=== PATIENT | male | born 1950 | race Caucasian/White ===

== ENCOUNTER 2024-06-13 16:21 | Inpatient (IN) | payer MEDICARE, OTHER ==
[~2024-06-13] VITALS: Ht 172.7 cm; Wt 84.8 kg
[2024-06-13 17:25] VITALS: BP 133/70; PULSE 68; RESP 18; TEMP 98.6; O2SAT 98
[2024-06-13] MEDS ORDERED: BISACODYL 10 MG RECTAL RECTAL SUPPOSITORY PR PRN (18:00)
[2024-06-13 20:00] VITALS: BP 121/59; PULSE 72; RESP 18; TEMP 98; O2SAT 98
[2024-06-13] MEDS: INFLUENZA VIRUS VACCINE TVS (6MO+) 2024-25/PF 45 MCG/0.5 ML SYRINGE IM. ONE (20:53)
[2024-06-13] MEDS: GABAPENTIN 300 MG CAPSULE PO SCH (20:54)
[2024-06-13] MEDS: DOCUSATE SODIUM 100 MG CAPSULE PO SCH (20:54)
[2024-06-13] MEDS: ETHYL ALCOHOL 62% ANTISEPTIC NASAL SANITIZER 0.6 ML AMPUL NASAL SCH (20:54)
[2024-06-13] MEDS: SENNOSIDES 8.6 MG TABLET PO SCH (20:55)
[2024-06-13] MEDS: METHOCARBAMOL 500 MG TABLET PO SCH (20:55)
[2024-06-13] MEDS: ENOXAPARIN SODIUM 60 MG/0.6 ML PF SYRINGE SQ SCH (20:56)
[2024-06-13] MEDS: OxyCODONE HCL 10 MG IR TABLET PO PRN (20:58)
[2024-06-13] MEDS: ACETAMINOPHEN 325 MG TABLET PO SCH (23:10)
[2024-06-14 01:12] VITALS: O2SAT 98
[2024-06-14 07:22] LABS: BASOPHILS % (AUTO) 0.9 % (0.0-2.0); EOSINOPHILS % (AUTO) 6.1 % (1.0-6.0); HEMATOCRIT 28.8 % (41-53); LYMPHOCYTES # (AUTO) 1.2 K/uL (1.0-4.8); LYMPHOCYTES % (AUTO) 15.9 % (22.0-44.0); MEAN CORPUSCULAR HEMOGLOBIN 31.8 pg (26.0-34.0); MEAN CORPUSCULAR HGB CONC 34.7 G/dL (31.0-37.0); MEAN CORPUSCULAR VOLUME 92 fL (80-100); MONOCYTES # (AUTO) 0.9 K/uL (0.1-1.0); MONOCYTES % (AUTO) 11.3 % (2.0-9.0); NEUTROPHILS # (AUTO) 5.2 K/uL (1.8-7.7); NEUTROPHILS % (AUTO) 65.8 % (40.0-70.0); PLATELET COUNT (AUTO) 293 K/uL (150-450); RED BLOOD CELL COUNT(AUTO) 3.15 MIL/uL (4.50-5.90); RED CELL DISTRIBUTION WIDTH 14.2 % (11.5-14.5); WHITE BLOOD COUNT (AUTO) 7.8 K/uL (4.5-11.0)
[2024-06-14 07:30] LABS: ALANINE AMINOTRANSFERASE 108 U/L (12-78); ALBUMIN 2.3 g/dL (3.4-5.0); ALKALINE PHOSPHATASE 73 U/L (46-116); ANION GAP 6 mmol/L (8-16); ASPARTATE AMINOTRANSFERASE 113 U/L (15-37); CARBON DIOXIDE 30 mmol/L (22-29); CHLORIDE 102 mmol/L (98-107); CREATININE 0.96 mg/dL (0.60-1.30); GLOMERULAR FILTR. RATE CALC > 60 mL/min (>60); GLUCOSE,RANDOM 105 mg/dL (70-110); POTASSIUM 4.2 mmol/L (3.5-5.1); SODIUM SERUM 138 mmol/L (136-145); TOTAL PROTEIN, SERUM 5.3 g/dL (6.4-8.2); UREA NITROGEN, BLOOD 20 mg/dL (7-18)
[2024-06-14 08:05] VITALS: BP 107/63; PULSE 76; RESP 18; TEMP 98.4; O2SAT 98
[2024-06-14] MEDS: ENOXAPARIN SODIUM 60 MG/0.6 ML PF SYRINGE SQ SCH (08:16)
[2024-06-14] MEDS: LIDOCAINE 5% TRANSDERMAL PATCH TD SCH (08:20)
[2024-06-14] MEDS: POLYETHYLENE GLYCOL 3350 17 GM PACKET PO SCH (08:23)
[2024-06-14] MEDS ORDERED: ROSUVASTATIN CALCIUM 20 MG TABLET PO SCH (09:00)
[2024-06-14] MEDS: OxyCODONE HCL 5 MG IR TABLET PO PRN (09:43)
[2024-06-14 10:19] VITALS: O2SAT 98
[2024-06-14] MEDS: ROSUVASTATIN CALCIUM 10 MG TABLET PO SCH (10:33)
[2024-06-14] MEDS: DiphenhydrAMINE/ZINC ACET 30 GM CREAM TP SCH (13:22)
[2024-06-14] MEDS: HydrOXYzine HCL 25 MG TABLET PO SCH (19:50)
[2024-06-14 20:00] VITALS: BP 123/64; PULSE 70; RESP 18; TEMP 98.2; O2SAT 98
[2024-06-14 22:00] VITALS: O2SAT 98
[2024-06-15 08:01] VITALS: BP 100/55; PULSE 76; RESP 19; TEMP 98.1; O2SAT 96
[2024-06-15] MEDS ORDERED: -LIDODERM PATCH NOTE- MISC SCH (09:00)
[2024-06-15 15:50] VITALS: BP 113/60; PULSE 75; RESP 19; TEMP 97.8; O2SAT 96
[2024-06-15 20:00] VITALS: BP 111/65; PULSE 70; RESP 20; TEMP 98.3; O2SAT 98
[2024-06-15] MEDS: -LIDODERM PATCH NOTE- MISC SCH (21:00)
[2024-06-15] MEDS ORDERED: LIDOCAINE 5% TRANSDERMAL PATCH TD SCH (21:00)
[2024-06-16 08:00] VITALS: BP 105/54; PULSE 60; RESP 19; TEMP 97.7; O2SAT 95
[2024-06-16] MEDS: DOCUSATE SODIUM 250 MG CAPSULE PO SCH (19:58)
[2024-06-16] MEDS: -LIDODERM PATCH NOTE- MISC SCH (20:06)
[2024-06-16 20:08] VITALS: BP 124/61; PULSE 64; RESP 18; TEMP 98.4; O2SAT 98
[2024-06-16 20:46] VITALS: O2SAT 98
[2024-06-16 23:02] VITALS: BP 109/57; RESP 18; O2SAT 98
[2024-06-17 08:05] VITALS: BP 123/67; PULSE 68; RESP 18; TEMP 98.6; O2SAT 98
[2024-06-17 11:01] VITALS: O2SAT 98
[2024-06-17 12:30] VITALS: BP 118/64; PULSE 78; RESP 18; TEMP 98; O2SAT 98
[2024-06-17] MEDS: SENNOSIDES 8.6 MG TABLET PO SCH (19:50)
[2024-06-17 20:50] VITALS: BP 113/57; PULSE 68; RESP 18; TEMP 98.9; O2SAT 96
[2024-06-17 20:52] VITALS: O2SAT 96
[2024-06-18 08:26] VITALS: BP 104/59; PULSE 60; RESP 19; TEMP 98.3; O2SAT 98
[2024-06-18 20:12] VITALS: BP 114/65; PULSE 67; RESP 18; TEMP 98.4; O2SAT 99
[2024-06-18 23:54] VITALS: O2SAT 99
[2024-06-19 08:00] VITALS: BP 103/60; PULSE 59; RESP 20; TEMP 98.2; O2SAT 97
[2024-06-19] MEDS ORDERED: METHOCARBAMOL 500 MG TABLET PO PRN (11:30)
[2024-06-19] MEDS: ACETAMINOPHEN 325 MG TABLET PO SCH (16:09)
[2024-06-19 20:00] VITALS: BP 107/59; PULSE 67; RESP 20; TEMP 98.4; O2SAT 97
[2024-06-20 06:05] LABS: BASOPHILS % (AUTO) 1.1 % (0.0-2.0); EOSINOPHILS % (AUTO) 5.8 % (1.0-6.0); HEMATOCRIT 27.3 % (41-53); HEMOGLOBIN 9.5 g/dL (13.5-17.5); LYMPHOCYTES # (AUTO) 1.4 K/uL (1.0-4.8); LYMPHOCYTES % (AUTO) 22.5 % (22.0-44.0); MEAN CORPUSCULAR HEMOGLOBIN 32.8 pg (26.0-34.0); MEAN CORPUSCULAR HGB CONC 34.9 G/dL (31.0-37.0); MEAN CORPUSCULAR VOLUME 94 fL (80-100); MONOCYTES # (AUTO) 0.6 K/uL (0.1-1.0); MONOCYTES % (AUTO) 9.8 % (2.0-9.0); NEUTROPHILS # (AUTO) 3.9 K/uL (1.8-7.7); NEUTROPHILS % (AUTO) 60.8 % (40.0-70.0); PLATELET COUNT (AUTO) 602 K/uL (150-450); RED BLOOD CELL COUNT(AUTO) 2.91 MIL/uL (4.50-5.90); WHITE BLOOD COUNT (AUTO) 6.4 K/uL (4.5-11.0)
[2024-06-20 06:24] LABS: ALANINE AMINOTRANSFERASE 47 U/L (12-78); ALBUMIN 2.4 g/dL (3.4-5.0); ALKALINE PHOSPHATASE 93 U/L (46-116); ANION GAP 3 mmol/L (8-16); ASPARTATE AMINOTRANSFERASE 32 U/L (15-37); BILIRUBIN,TOTAL 0.7 mg/dL (0.1-1.0); CALCIUM, TOTAL 8.4 mg/dL (8.8-10.5); CARBON DIOXIDE 30 mmol/L (22-29); CHLORIDE 102 mmol/L (98-107); CREATININE 1.03 mg/dL (0.60-1.30); GLOMERULAR FILTR. RATE CALC > 60 mL/min (>60); GLUCOSE,RANDOM 99 mg/dL (70-110); SODIUM SERUM 135 mmol/L (136-145); TOTAL PROTEIN, SERUM 5.5 g/dL (6.4-8.2); UREA NITROGEN, BLOOD 28 mg/dL (7-18)
[2024-06-20 10:30] VITALS: BP 135/66; PULSE 65; RESP 18; TEMP 97.5; O2SAT 98
[2024-06-20 20:00] VITALS: BP 109/60; PULSE 67; RESP 20; TEMP 98.3; O2SAT 96
[2024-06-20 21:41] VITALS: O2SAT 96
[2024-06-21 08:05] VITALS: BP 108/64; PULSE 68; RESP 18; TEMP 98.4; O2SAT 98
[2024-06-21] MEDS ORDERED: DOCU-412 PO (11:06)
[2024-06-21] MEDS ORDERED: OXYC10TA48 PO (11:06)
[2024-06-21] MEDS ORDERED: ROSU10TA72 PO (11:06)
[2024-06-21] MEDS ORDERED: ENOX60SY28 SQ (11:06)
[2024-06-21] MEDS ORDERED: SENN-374 PO (11:06)
[2024-06-21 13:41] VITALS: O2SAT 98
[2024-06-21 19:48] VITALS: BP 120/62; PULSE 66; RESP 18; TEMP 98; O2SAT 96
[2024-06-21 23:29] VITALS: O2SAT 96
[2024-06-22 08:00] VITALS: BP 113/66; PULSE 62; RESP 19; TEMP 97.6; O2SAT 98
[2024-06-22 20:01] VITALS: BP 117/59; PULSE 65; RESP 18; TEMP 98.1; O2SAT 98
[2024-06-22 22:53] VITALS: O2SAT 98
[2024-06-23 08:00] VITALS: BP 104/55; PULSE 59; RESP 19; TEMP 98.2; O2SAT 97
[2024-06-23 10:15] VITALS: BP 118/59; PULSE 65; RESP 18
== END 2024-06-23 10:25 | disposition home health service (06) | DRG 536 ==
LOC: 2WR 17:30
PROVIDERS: ADMIT Physical Medicine & Rehabilitation; ATTEND Physical Medicine & Rehabilitation
DX: S72.091A Other fracture of head and neck of right femur, initial encounter for closed fracture (principal); S52.502A Unspecified fracture of the lower end of left radius, initial encounter for closed fracture; E46 Unspecified protein-calorie malnutrition; M97.01XA Periprosthetic fracture around internal prosthetic right hip joint, initial encounter; D64.9 Anemia, unspecified; E83.39 Other disorders of phosphorus metabolism; E78.00 Pure hypercholesterolemia, unspecified; Z74.09 Other reduced mobility; Z96.642 Presence of left artificial hip joint; Z74.1 Need for assistance with personal care; I95.9 Hypotension, unspecified; R26.9 Unspecified abnormalities of gait and mobility; R74.8 Abnormal levels of other serum enzymes; R21 Rash and other nonspecific skin eruption; Z79.899 Other long term (current) drug therapy; V89.2XXA Person injured in unspecified motor-vehicle accident, traffic, initial encounter; Y93.89 Activity, other specified; Y92.89 Other specified places as the place of occurrence of the external cause; Y99.8 Other external cause status
CPT/HCPCS: 80053; 85025; 87081; 97110; 97116; 97140; 97163; 97167; 97530; 97535; 99366; J1650